=== PATIENT | female | born 1955 ===

== ENCOUNTER 2020-07-22 09:45 | Outpatient (RCR) | payer MEDICARE, OTHER, SELFPAY ==
--- NOTE | 2020-07-20 12:24 | PT.OIE ---
Current Diagnoses Chronic migraine without aura, intractable, without status migrainosus (07/20/20) Benign paroxysmal vertigo, unspecified ear (07/20/20) Sensorineural hearing loss, bilateral (07/20/20) Tinnitus, bilateral (07/20/20) Dizziness and giddiness (07/20/20) Past Medical History (Last Updated 04/28/19 @ 09:06 by Beka Rowland MD) Ptosis of eyelid, right Visit Care Team Role Provider Type Federico Johnson MD Family Provider Non-Staff Primary Care Provider Specialty: Internal Medicine Address: [address] [place], [address] Email: Brendan Aguirre MD Attending Provider Physician Referring Provider Specialty: Ear, Nose, Throat Address: [address] [place] [address], [id number] Email: [email or web address] Physical Therapy Initial Evaluation PT-OP-A Visit Information Start: 07/20/20 12:07 Freq: Status: Active Protocol: Document 07/20/20 11:15 DCW (Rec: 07/20/20 12:23 DCW [id number]) Out-Patient Physical Therapy Visit Information Visit Information Visit Type Initial Evaluation Visit Start Time 11:15 Visit Stop Time 12:02 Total Visit Minutes 47 Visit Number 1 Number of CIGARETTE SELLER Visits 0 Evaluation Information Evaluation Date 07/20/20 PT-OP-B Current Condition Start: 07/20/20 12:07 Freq: Status: Active Protocol: Document 07/20/20 11:15 DCW (Rec: 07/20/20 12:23 DCW [id number]) Current Condition History of Current Condition Onset Date ~one year Current Complaints Vague complaints of dizziness, mainly with motion History of Current Condition Pt is a 64 year old female complaining of a one year history of largely motion- induced vertigo. Pt reports episodes can last up to a few hours, but then admits that the actual dizziness may only last 1-2 minutes and she then just does not feel good afterward. Symptoms are usually provoked by supine-> standing or turning her head. Pt denies recent hearing changes, diplopia, dysarthria, or decreased mentation/ consciousness. Pt reports symptoms are waxing/waning in nature. Pt denies hx of HTN, diabetes, arrhythmia, seizure, CVA, anxiety/panic disorders, depression, or excessive smoking or drinking. Pt does have an extensive migraine history, as well as a history of cervical pain and multiple neck surgeries. Additionally, pt has had a two year history of tinnitus, although it started way before the dizziness. PT-OP-C Subjective Start: 07/20/20 12:07 Freq: Status: Active Protocol: Document 07/20/20 11:15 DCW (Rec: 07/20/20 12:23 [facility] [id number]) OP-PT Subjective Patient Comments Patient Comments When I was at my physician's office, they did that test, I think I was on my right side, and my eyes were just jumping all over the place. Patient Questionnaires Dizziness Handicap Inventory DHI Score 64% DHI Functional Impairment 60 to 79% Impaired (Score 60- 79) PT-OP-O Vestibular Start: 07/20/20 12:07 Freq: Status: Active Protocol: Document 07/20/20 11:15 DCW (Rec: 07/20/20 12:23 [facility] [id number]) Vestibular Assessment Screening Tests Vestibular Artery Screen Negative Auditory Tests [place] Test Within normal limits Rinne Test Negative Air Conduction Results Equal Visual Testing Smooth Pursuits Horizontal WNL Smooth Pursuits Vertical WNL Saccades Horizontal WNL Saccades Vertical WNL Gaze Evoked Nystagmus With Fixation Negative Gaze Evoked Nystagmus Without Fixation Negative Heave Test Negative Thrust Head Negative Head Shake Negative Positional Testing [place]-Hallpike Positive Left,Negative Right, Upbeating,< 60 Seconds Rolling Test Negative Left,Negative Right PT-OP-Q Treatments Start: 07/20/20 12:07 Freq: Status: Active Protocol: Document 07/20/20 11:15 DCW (Rec: 07/20/20 12:23 [facility] [id number]) Canalithic Repositioning BPPV Treatment Brandee Affected Canal(s) Left posterior Reps x2 PT-OP-T Assessment and Plan Start: 07/20/20 12:07 Freq: Status: Active Protocol: Document 07/20/20 11:15 DCW (Rec: 07/20/20 12:23 [facility] [id number]) Physical Therapy Assessment Rehab Potential Rehabilitation Potential Good Evaluation Complexity Number of Personal Factors/Comorbidities 1-2 Number of Body Systems Impaired 1-2 Clinical Presentation at Evaluation Unstable Impairments Impairments Balance,Vestibular Goals Two Impairment Positive left [place]-Hallpike test Endband Cutter Hand Goal (LTG) Pt to have negative positional tests bilaterally LTG Duration 08/20/20 One Impairment Pt experiences vertigo, typicallt with supine->stand transfer Endband Cutter Hand Goal (LTG) Pt to perform all bed mobility and transfers without any symptoms of vertigo LTG Duration 08/20/20 Assessment Summary Assessment During left Ankur-Hallpike test, pt complained of vertigo and demonstrated very mild up- beating, torsional nystagmus lasting approximately 5 seconds, consistent with diagnosis of left-sided posterior canal BPPV, canalithiasis-type. Pt was treated with a left-sided modified Brandee maneuver. Pt complained of symptoms in the first and third position, which is normally indicative of a successful treatment. Further positional testing was negative. Pt did have an otherwise unremarkable vestibular examination, however some of her discriptions and subjective complaints seemed slightly unusual for straight-forward BPPV. With pt's history of both migraines and cervical disorders/surgical intervention, further testing may be require to rule out migraine variant dizziness or cervicogenic dizziness if pt does not respond well to CRM. Physical Therapy Plan Frequency and Duration Frequency of Treatment 2x/Week Duration of Treatment One month Plan of Care Start Date 07/20/20 Plan of Care End Date 08/20/20 Therapeutic Interventions Therapeutic Interventions Balance Training,Canalithic Repositioning,Manual Therapy, Neuromuscular Re-education, Therapeutic Exercises, Vestibular Rehabilitation Next Visit Focus/Plan Next Note Type Treatment Note Next Visit Plan Further positional testing, vestibular testing, CRM as indicated
--- NOTE | 2020-07-20 12:24 | PT.OPPOC ---
Physical, Occupational & Speech Therapy At [facility] Current Diagnoses Chronic migraine without aura, intractable, without status migrainosus (07/20/20) Benign paroxysmal vertigo, unspecified ear (07/20/20) Sensorineural hearing loss, bilateral (07/20/20) Tinnitus, bilateral (07/20/20) Dizziness and giddiness (07/20/20) Visit Care Team Role Provider Type Federico Johnson MD Family Provider Non-Staff Primary Care Provider Specialty: Internal Medicine Address: [address] [place], [address] Email: Brendan Aguirre MD Attending Provider Physician Referring Provider Specialty: Ear, Nose, Throat Address: [address] [place] [address], [address] Email: [email or web address] Plan Of Care PT-OP-T Assessment and Plan Start: 07/20/20 12:07 Freq: Status: Active Protocol: Document 07/20/20 11:15 DCW (Rec: 07/20/20 12:23 DCW [id number]) Physical Therapy Assessment Rehab Potential Rehabilitation Potential Good Evaluation Complexity Number of Personal Factors/Comorbidities 1-2 Number of Body Systems Impaired 1-2 Clinical Presentation at Evaluation Unstable Impairments Impairments Balance,Vestibular Goals Two Impairment Positive left [place]-Hallpike test Magnetic Testing Technician Goal (LTG) Pt to have negative positional tests bilaterally LTG Duration 08/20/20 One Impairment Pt experiences vertigo, typicallt with supine->stand transfer Half-Way Goal (LTG) Pt to perform all bed mobility and transfers without any symptoms of vertigo LTG Duration 08/20/20 Assessment Summary Assessment During left Ankur-Hallpike test, pt complained of vertigo and demonstrated very mild up- beating, torsional nystagmus lasting approximately 5 seconds, consistent with diagnosis of left-sided posterior canal BPPV, canalithiasis-type. Pt was treated with a left-sided modified Brandee maneuver. Pt complained of symptoms in the first and third position, which is normally indicative of a successful treatment. Further positional testing was negative. Pt did have an otherwise unremarkable vestibular examination, however some of her discriptions and subjective complaints seemed slightly unusual for straight-forward BPPV. With pt's history of both migraines and cervical disorders/surgical intervention, further testing may be require to rule out migraine variant dizziness or cervicogenic dizziness if pt does not respond well to CRM. Physical Therapy Plan Frequency and Duration Frequency of Treatment 2x/Week Duration of Treatment One month Plan of Care Start Date 07/20/20 Plan of Care End Date 08/20/20 Therapeutic Interventions Therapeutic Interventions Balance Training,Canalithic Repositioning,Manual Therapy, Neuromuscular Re-education, Therapeutic Exercises, Vestibular Rehabilitation Next Visit Focus/Plan Next Note Type Treatment Note Next Visit Plan Further positional testing, vestibular testing, CRM as indicated Plan of Care Dates Plan of Care Start Date 07/20/20 Plan of Care End Date 08/20/20 Electronically Signed by: Steven Navas, PT 07/20/20 [id number] Please Sign and Return: I have reviewed this Plan of Care and certify that the skilled therapy services above are required to meet the patient?s needs. Physician Signature Date Printed Name and Credentials Clinical Instructor Signature Printed Name and Credentials
--- NOTE | 2020-07-22 10:32 | PT.OTN ---
Current Diagnoses Chronic migraine without aura, intractable, without status migrainosus (07/22/20) Benign paroxysmal vertigo, unspecified ear (07/22/20) Sensorineural hearing loss, bilateral (07/22/20) Tinnitus, bilateral (07/22/20) Dizziness and giddiness (07/22/20) Physical Therapy Treatment Note PT-OP-A Visit Information Start: 07/20/20 12:07 Freq: Status: Active Protocol: Document 07/22/20 09:45 DCW (Rec: 07/22/20 10:32 DCW [id number]) Out-Patient Physical Therapy Visit Information Visit Information Visit Type Treatment Note Visit Start Time 09:45 Visit Stop Time 10:30 Total Visit Minutes 45 Visit Number 2 Number of LEATHER CASE FINISHER Visits 0 Evaluation Information Evaluation Date 07/20/20 PT-OP-B Current Condition Start: 07/20/20 12:07 Freq: Status: Active Protocol: Document 07/20/20 11:15 DCW (Rec: 07/20/20 12:23 DCW [id number]) Current Condition History of Current Condition Onset Date ~one year Current Complaints Vague complaints of dizziness, mainly with motion History of Current Condition Pt is a 64 year old female complaining of a one year history of largely motion- induced vertigo. Pt reports episodes can last up to a few hours, but then admits that the actual dizziness may only last 1-2 minutes and she then just does not feel good afterward. Symptoms are usually provoked by supine-> standing or turning her head. Pt denies recent hearing changes, diplopia, dysarthria, or decreased mentation/ consciousness. Pt reports symptoms are waxing/waning in nature. Pt denies hx of HTN, diabetes, arrhythmia, seizure, CVA, anxiety/panic disorders, depression, or excessive smoking or drinking. Pt does have an extensive migraine history, as well as a history of cervical pain and multiple neck surgeries. Additionally, pt has had a two year history of tinnitus, although it started way before the dizziness. PT-OP-C Subjective Start: 07/20/20 12:07 Freq: Status: Active Protocol: Document 07/22/20 09:45 DCW (Rec: 07/22/20 10:32 DCW [id number]) OP-PT Subjective Patient Comments Patient Comments Pt notes no big noticeable change. PT-OP-O Vestibular Start: 07/20/20 12:07 Freq: Status: Active Protocol: Document 07/22/20 09:45 DCW (Rec: 07/22/20 10:32 DCW [id number]) Vestibular Assessment Positional Testing [place]-Hallpike Negative Left,Negative Right Rolling Test Negative Left,Negative Right PT-OP-Q Treatments Start: 07/20/20 12:07 Freq: Status: Active Protocol: Document 07/22/20 09:45 DCW (Rec: 07/22/20 10:32 DCW [id number]) Manual Therapy Treatment Soft Tissue Mobilization 3 Body Location B SCM Mobilization Type Strumming,Sustained Pressure 2 Body Location B Scalenes Mobilization Type Strumming,Sustained Pressure 1 Body Location B Upper Trap Mobilization Type Strumming,Sustained Pressure Other Other Manual Treatments Positional testing PT-OP-T Assessment and Plan Start: 07/20/20 12:07 Freq: Status: Active Protocol: Document 07/22/20 09:45 DCW (Rec: 07/22/20 10:32 DCW [id number]) Physical Therapy Assessment Impairments Impairments Balance,Vestibular Goals Two Impairment Positive left [place]-Hallpike test Loan Manager Goal (LTG) Pt to have negative positional tests bilaterally LTG Duration 08/20/20 One Impairment Pt experiences vertigo, typically with supine->stand transfer Loan Manager Goal (LTG) Pt to perform all bed mobility and transfers without any symptoms of vertigo LTG Duration 08/20/20 Assessment Summary Assessment Pt vestibular testing/ positional testing negative today, no indication of continued vestibular involvement, however pt continues to complain of subjective symptoms. With pt's extensive history of both cervical injuries and migraines, she may be suffering from cervicogenic or migraine related vertigo. Pt is already being treated with both these issues by specialists, and at this point , it is unclear how much further skilled PT may help her. Therapist and patient concluded that pt should determine how things are going without PT, and call for a follow-up within the next month if needed. Physical Therapy Plan Frequency and Duration Frequency of Treatment 2x/Week Duration of Treatment One month Plan of Care Start Date 07/20/20 Plan of Care End Date 08/20/20 Therapeutic Interventions Therapeutic Interventions Balance Training,Canalithic Repositioning,Manual Therapy, Neuromuscular Re-education, Therapeutic Exercises, Vestibular Rehabilitation Next Visit Focus/Plan Next Note Type Treatment Note Next Visit Plan Further positional testing, vestibular testing, CRM as indicated
--- NOTE | 2020-09-30 14:07 | PT.OPDS ---
Current Diagnoses Chronic migraine without aura, intractable, without status migrainosus (07/22/20) Benign paroxysmal vertigo, unspecified ear (07/22/20) Sensorineural hearing loss, bilateral (07/22/20) Tinnitus, bilateral (07/22/20) Dizziness and giddiness (07/22/20) Visit Care Team Role Provider Type Federico Johnson MD Family Provider Non-Staff Primary Care Provider Specialty: Internal Medicine Address: [address] [place], [address] Email: Brendan Aguirre MD Attending Provider Physician Referring Provider Specialty: Ear, Nose, Throat Address: [address] [place] [address], [address] Email: [email or web address] Visit Number Visit Number 2 Discharge Summary PT-OP-B Current Condition Start: 07/20/20 12:07 Freq: Status: Active Protocol: Document 07/20/20 11:15 DCW (Rec: 07/20/20 12:23 DCW [id number]) Current Condition History of Current Condition Onset Date ~one year Current Complaints Vague complaints of dizziness, mainly with motion History of Current Condition Pt is a 64 year old female complaining of a one year history of largely motion- induced vertigo. Pt reports episodes can last up to a few hours, but then admits that the actual dizziness may only last 1-2 minutes and she then just does not feel good afterward. Symptoms are usually provoked by supine-> standing or turning her head. Pt denies recent hearing changes, diplopia, dysarthria, or decreased mentation/ consciousness. Pt reports symptoms are waxing/waning in nature. Pt denies hx of HTN, diabetes, arrhythmia, seizure, CVA, anxiety/panic disorders, depression, or excessive smoking or drinking. Pt does have an extensive migraine history, as well as a history of cervical pain and multiple neck surgeries. Additionally, pt has had a two year history of tinnitus, although it started way before the dizziness. PT-OP-C Subjective Start: 07/20/20 12:07 Freq: Status: Active Protocol: Document 07/22/20 09:45 DCW (Rec: 07/22/20 10:32 DCW [id number]) OP-PT Subjective Patient Comments Patient Comments Pt notes no big noticeable change. PT-OP-O Vestibular Start: 07/20/20 12:07 Freq: Status: Active Protocol: Document 07/22/20 09:45 DCW (Rec: 07/22/20 10:32 DCW [id number]) Vestibular Assessment Positional Testing [place]-Hallpike Negative Left,Negative Right Rolling Test Negative Left,Negative Right PT-OP-T Assessment and Plan Start: 07/20/20 12:07 Freq: Status: Active Protocol: Document 09/30/20 14:06 DCW (Rec: 09/30/20 14:07 DCW [id number]) Physical Therapy Assessment Assessment Summary Assessment Pt instructed to call for follow-up appointment if symptoms returned. Pt has now not been seen in more than two months, will be discharged from skilled therapy at this time. Pt will require a new referral in order to return to therapy. Physical Therapy Plan Discharge Physical Therapy Discharge Reasons No Longer Attending PT Next Visit Focus/Plan Next Note Type Discharge Summary
== END 2020-10-04 09:45 | disposition home or self-care (01) ==
LOC: PHYS 09:45
PROVIDERS: Family Provider Internal Medicine; PCP Internal Medicine; Referring Provider Otolaryngology; Visit Provider Otolaryngology
DX: G43.719 Chronic migraine without aura, intractable, without status migrainosus (principal); H90.3 Sensorineural hearing loss, bilateral; H93.13 Tinnitus, bilateral; H81.10 Benign paroxysmal vertigo, unspecified ear
CPT/HCPCS: 95992; 97140; 97161